=== PATIENT | female | born 1975 | race Caucasian/White ===

== ENCOUNTER 2016-07-06 07:13 | Emergency (ER) | payer BC, OTHER ==
[2016-07-06 07:25] VITALS: RESP 18; TEMP 98; O2SAT 97
--- NOTE | 2016-07-06 07:53 | EDPHY ---
H & P Time Seen by Provider: 07/06/16 07:18 HPI/ROS: CHIEF COMPLAINT: Swollen ring finger History by patient HISTORY OF PRESENT ILLNESS: 40-year-old woman with no significant past medical history complains of 4 days of pain and swelling around the nail of her right ring finger. Patient is right-hand dominant. She says she has infections like this before. She has tried warm soaks and topical antibiotic ointment at home to no avail. She says she does get frequent manic years but this all started with a hangnail that she removed herself. She denies any fever and is otherwise feeling well. She does complain of significant pain in the finger. REVIEW OF SYSTEMS: As in HPI, and all other systems reviewed and are negative Physical Exam: General Appearance: Alert and no distress. Eyes: Pupils equal and round no injection. Musculoskeletal: Neck is supple and nontender. Extremities: Right ring finger with redness and swelling around the nail the radial side greater than the ulnar side, no drainage, positive tenderness, cap refill less than 2 seconds, sensation intact, full range of motion of all joints , other fingers not affected.. Skin: No rashes or lesions except described above. Constitutional: Initial Vital Signs Temperature (C) 36.6 C 07/06/16 07:22 Heart Rate 68 07/06/16 07:22 Respiratory Rate 18 07/06/16 07:22 Blood Pressure 151/80 H 07/06/16 07:22 O2 Sat (%) 97 07/06/16 07:22 O2 Delivery Mode Room Air Allergies/Adverse Reactions: amoxicillin [Amoxicillin] Allergy (Verified 03/05/13 21:11) Home Medications: Medication Instructions Recorded THYROID 03/05/13 Cephalexin 500 mg PO TID #15 tablet 07/06/16 Liothyronine Sodium [Cytomel 5 mcg 07/06/16 (*)] Medical Decision Making Procedures: Procedure: Paronychia drainage. The patient's paronychia was located on the right ring finger. I obtained verbal consent from the patient to drain the abscess who was informed about the possibility of bleeding and pain. Patient was anesthetized with a ring block with 0.5% Marcaine, approximately 5 cc. The abscess was incised with and a 18 gauge beveled needle and a small amount of sanguinous-purulent drainage was expressed. The wound was soaked and then dressed with a finger dressing.. The patient tolerated the procedure well. The procedure was performed by myself. ED Course/Re-evaluation: Patient presents with right ring finger paronychia. Wound was drained, soaked and dressed. The patient will continue to twice a day soaks and will be placed on oral antibiotics. She has an allergy to amoxicillin up but has taken cephalosporins without trouble in the past. We discussed home care and return precautions. Departure - Departure Disposition: Home, Routine, Self-Care Clinical Impression: Paronychia of finger of right hand Condition: Good Instructions: Paronychia (ED) Additional Instructions: You were seen by Dr. Adela Avery today. Return for any worsening or new concerns. Soak your finger twice a day. Take antibiotics as prescribed. Return if the finger gets more swollen, more red, or more painful. Or if he develops a fever. Or any new problems or concerns. Referrals: NONE *PRIMARY CARE P,. [Primary Care Provider] - As per Instructions Prescriptions: Cephalexin 500 mg PO TID #15 tablet
[2016-07-06 08:36] VITALS: BP 125/62; PULSE 75
== END 2016-07-06 08:40 | disposition home or self-care (01) ==
LOC: CED 07:13
PROC: 0J9J0ZZ Drainage of Right Hand Subcutaneous Tissue and Fascia, Open Approach (ICD-10-PCS; principal; 2016-07-06)
DX: L03.011 Cellulitis of right finger (principal)